=== PATIENT | male | born 1990 | race African-American/Black ===

== ENCOUNTER 2017-03-05 23:11 | Emergency (ER) | payer SELFPAY ==
--- NOTE | 2017-03-05 23:47 | PHYS DOC ---
Past Medical History Past Medical History: No Pertinent History Past Surgical History: No Surgical History Alcohol Use: Occasionally Drug Use: None Adult General Chief Complaint Chief Complaint: PENIS PROBLEM HPI HPI Patient is a 27 year old male presents the ED complaining of penile discharge times one hour. Patient states he has had unprotected sex in the last month with multiple sexual partners. Patient states he was told that his partner had an STD. Associated symptoms include dysuria. Denies testicular swelling, headache, fever, abdominal pain, nausea/vomiting, chest pain or shortness of breath. Review of Systems Review of Systems Constitutional: Denies fever or chills [] Eyes: Denies change in visual acuity, redness, or eye pain [] HENT: Denies nasal congestion or sore throat [] Respiratory: Denies cough or shortness of breath [] Cardiovascular: No additional information not addressed in HPI [] GI: Denies abdominal pain, nausea, vomiting, bloody stools or diarrhea [] : Complains of dysuria and penile discharge. Denies hematuria [] Musculoskeletal: Denies back pain or joint pain [] Integument: Denies rash or skin lesions [] Neurologic: Denies headache, focal weakness or sensory changes [] Endocrine: Denies polyuria or polydipsia [] Current Medications Current Medications Current Medications Medications (Trade) Dose Ordered Sig/Pawel Start Time Stop Time Status Last Admin Dose Admin Azithromycin (Zithromax) 1,000 mg 1X ONCE 03/06/17 00:30 03/06/17 00:31 DC 03/06/17 00:26 1,000 MG Ceftriaxone Sodium (Rocephin Im) 250 mg 1X ONCE 03/06/17 00:30 03/06/17 00:31 DC 03/06/17 00:26 250 MG Metronidazole (Flagyl) 2,000 mg 1X ONCE 03/06/17 00:30 03/06/17 00:31 DC 03/06/17 00:26 2,000 MG Allergies Allergies Allergies Coded Allergies Type Severity Reaction Last Updated Verified No Known Drug Allergies 03/06/17 No Physical Exam Physical Exam Constitutional: Well developed, well nourished, no acute distress, non-toxic appearance. [] HENT: Normocephalic, atraumatic, bilateral external ears normal, oropharynx moist, no oral exudates, nose normal. [] Eyes: PERRLA, EOMI, conjunctiva normal, no discharge. [] Neck: Normal range of motion, no tenderness, supple, no stridor. [] Cardiovascular:Heart rate regular rhythm, no murmur [] Lungs & Thorax: Bilateral breath sounds clear to auscultation [] Abdomen: Bowel sounds normal, soft, no tenderness, no masses, no pulsatile masses. [] REFUSED EXAM. Skin: Warm, dry, no erythema, no rash. [] Back: No tenderness, no CVA tenderness. [] Extremities: No tenderness, no cyanosis, no clubbing, ROM intact, no edema. [] Neurologic: Alert and oriented X 3, normal motor function, normal sensory function, no focal deficits noted. [] Psychologic: Affect normal, judgement normal, mood normal. [] Current Patient Data Lab Values Laboratory Tests Test 03/05/17 23:38 Urine Collection Type Unknown Urine Color Yellow Urine Clarity Clear Urine pH 6.0 Urine Specific [place] >=1.030 Urine Protein Negative mg/dL (NEG-TRACE) Urine Glucose (UA) Negative mg/dL (NEG) Urine Ketones (Stick) Negative mg/dL (NEG) Urine Blood Negative (NEG) Urine Nitrite Negative (NEG) Urine Bilirubin Negative (NEG) Urine Urobilinogen Dipstick 1.0 mg/dL (0.2 mg/dL) Urine Leukocyte Esterase Small (NEG) Urine RBC Tntc /HPF (0-2) Urine WBC 5-10 /HPF (0-4) Urine Squamous Epithelial Cells Few /LPF Urine Bacteria Few /HPF (0-FEW) Urine Mucus Mod /LPF EKG EKG [] Radiology/Procedures Radiology/Procedures [] Course & Med Decision Making Course & Med Decision Making Pertinent Labs and Imaging studies reviewed. (See chart for details) []Will treat for STD-like symptoms and exposure with Rocephin, azithromycin and Flagyl in ED. Discharge with doxycycline. Discussed safe sex practice. Discussed follow-up STD testing. Discussed needing to have conversation with sexual partners. Cultures pending. Discussed reasons to return to the ED. Patient understands and agrees with plan. Dragon Disclaimer Dragon Disclaimer This electronic medical record was generated, in whole or in part, using a voice recognition dictation system. Departure Departure Impression: Primary Impression: Penile discharge Additional Impression: Possible exposure to STD Disposition: 01 HOME, SELF-CARE Condition: IMPROVED Referrals: CARL LIN MD Patient Instructions: Sexually Transmitted Disease Additional Instructions: COMMUNITY RESOURCE LIST FOR LOCAL HEALTHCARE Scripts Doxycycline Hyclate (DOXYCYCLINE HYCLATE) 100 Mg Capsule 1 CAP PO BID, #20 CAP Prov: JASPREET CARVER 03/06/17 Problem Qualifiers JASPREET CARVER Mar 05, 2017 23:47
[2017-03-06 00:04] LABS: BILIRUBIN,URINE NEGATIVE (NEG); GLUCOSE,URINE NEGATIVE (NEG); NITRITE,URINE NEGATIVE (NEG); PROTEIN,URINE NEGATIVE (NEG-TRACE)
[2017-03-06] MEDS ORDERED: DOXY100C2 PO (00:07)
[2017-03-06] MEDS ORDERED: cefTRIAXone IM 250 MG VIAL IM ONE (00:30)
[2017-03-06] MEDS ORDERED: metroNIDAZOLE 500 MG TABLET PO ONE (00:30)
[2017-03-06] MEDS ORDERED: AZITHROMYCIN 250 MG TABLET. PO ONE (00:30)
[2017-03-06 00:31] LABS: BACTERIA,URINE FEW /HPF (0-FEW); RBC,URINE TNTC /HPF (0-2); SQUAMOUS EPITHELIAL CELL,UR FEW /LPF
== END 2017-03-06 00:45 | disposition home or self-care (01) ==
LOC: ER 23:11
DX: Z11.3 Encounter for screening for infections with a predominantly sexual mode of transmission (principal); R36.9 Urethral discharge, unspecified; R30.0 Dysuria
CPT/HCPCS: 81001; 96372; 99283; J0696; Q0144